=== PATIENT | male | born 1970 | race Hispanic/Latino ===

== ENCOUNTER → 2018-07-18 | Outpatient (CLI) | payer OTHER | END | disposition home or self-care (01) | LOC: RAH 11:27 | PROVIDERS: ATTEND Internal Medicine | DX: R22.1 Localized swelling, mass and lump, neck (principal); M47.899 Other spondylosis, site unspecified | CPT/HCPCS: 73010 ==

== ENCOUNTER → 2018-07-25 | Outpatient (CLI) | payer OTHER | END | disposition home or self-care (01) | LOC: RAH 12:28 | PROVIDERS: ATTEND Internal Medicine | DX: R22.1 Localized swelling, mass and lump, neck (principal) | CPT/HCPCS: 76604 ==

== ENCOUNTER → 2020-09-08 | Outpatient (CLI) | payer OTHER | END | disposition home or self-care (01) | LOC: RAH 13:54 | PROVIDERS: ATTEND Internal Medicine | DX: N50.3 Cyst of epididymis (principal); N50.819 Testicular pain, unspecified | CPT/HCPCS: 76870 ==

== ENCOUNTER 2020-10-01 08:56 | Emergency (ER) | payer OTHER | END 2020-10-01 09:53 | disposition home or self-care (01) | LOC: EDH 08:56 | DX: K02.9 Dental caries, unspecified (principal); K12.2 Cellulitis and abscess of mouth; I10 Essential (primary) hypertension ==